=== PATIENT | female | born 1965 | race Asian ===

== ENCOUNTER 2023-02-04 09:11 | Emergency (ER) | payer SELFPAY ==
[2023-02-04] MEDS ORDERED: Take Home: Amoxicillin/Clavulanate K 875-125 MG Tab, 2 Tab Pack PO ONE (09:47)
== END 2023-02-04 10:15 | disposition home or self-care (01) ==
LOC: CC.ED 09:11
DX: H66.92 Otitis media, unspecified, left ear (principal); I10 Essential (primary) hypertension; F17.210 Nicotine dependence, cigarettes, uncomplicated; Z88.2 Allergy status to sulfonamides; Z88.5 Allergy status to narcotic agent; Z79.899 Other long term (current) drug therapy
CPT/HCPCS: 99283; A9270-GY